=== PATIENT | female | born 1970 | race African-American/Black ===

== ENCOUNTER 2019-01-08 02:08 | Emergency (ER) | payer OTHER ==
[~2019-01-08] VITALS: Ht 160 cm; Wt 108.6 kg
[2019-01-08] MEDS ORDERED: ALBUTEROL MDI (02:15)
[2019-01-08] MEDS ORDERED: [UNRECOGNIZED DRUG - OTHER] (02:15)
[2019-01-08] MEDS ORDERED: CLINDAMYCIN 300 MG CAPSULE ONE (02:28)
[2019-01-08] MEDS ORDERED: HYDROcodone/APAP 5/325 TABLET ONE (02:28)
[2019-01-08] MEDS ORDERED: HYDROcodone/APAP 5/325 TABLET PO ONE (02:30)
[2019-01-08] MEDS ORDERED: CLINDAMYCIN 300 MG CAPSULE PO ONE (02:30)
[2019-01-08 02:42] VITALS: BP 134/74
== END 2019-01-08 02:43 | disposition home or self-care (01) ==
LOC: ED 02:31
DX: K04.6 Periapical abscess with sinus (principal)
CPT/HCPCS: 99283